=== PATIENT | female | born 1935 | race Two or more races ===

== ENCOUNTER 2020-04-20 10:00 | Emergency (ER) | payer OTHER ==
[~2020-04-20] VITALS: Ht 152.4 cm; Wt 89.8 kg
[2020-04-20] MEDS ORDERED: HUMULIN N100 UNIT/2 IM (10:10)
[2020-04-20] MEDS ORDERED: DIOVAN320 MG PO (10:11)
[2020-04-20] MEDS ORDERED: CARDURA XL4 MG PO (10:11)
[2020-04-20] MEDS ORDERED: NEURONTIN600 M1 PO (10:11)
[2020-04-20] MEDS ORDERED: CHILDREN'S ASPI81 MG PO (10:11)
[2020-04-20] MEDS ORDERED: TOPROL XL25 M1 PO (10:11)
[2020-04-20] MEDS ORDERED: TYLENOL ARTHRI650 MG PO (10:12)
== END 2020-04-20 15:32 | disposition home or self-care (01) ==
LOC: ER 10:00
DX: I83.893 Varicose veins of bilateral lower extremities with other complications (principal); M79.605 Pain in left leg

== ENCOUNTER 2021-10-01 09:46 | Inpatient (IN) | payer OTHER ==
[~2021-10-01] VITALS: Ht 152.4 cm; Wt 91.6 kg
[~2021-10-01 09:46] MED LIST: CARDURA XL4 MG PO; CHILDREN'S ASPI81 MG PO; DIOVAN320 MG PO; HUMULIN N100 UNIT/2 IM; NEURONTIN600 M1 PO; TOPROL XL25 M1 PO; TYLENOL ARTHRI650 MG PO
[2021-10-01] MEDS ORDERED: LOSARTAN POTAS100 MG PO (10:05)
[2021-10-03] MEDS ORDERED: SALONPAS 3.1%-1 EACH (10:18)
[2021-10-03] MEDS ORDERED: DONEPEZIL HCL5 MG (10:18)
[2021-10-03] MEDS ORDERED: LUBRICANT EYE15 M1 (10:18)
[2021-10-03] MEDS ORDERED: DULOXETINE HCL20 MG (10:19)
[2021-10-03] MEDS ORDERED: METFORMIN HCL500 M4 (10:19)
[2021-10-03] MEDS ORDERED: LOPRESSOR25 MG (10:19)
[2021-10-03] MEDS ORDERED: VALSARTAN-HCTZ1 EAC3 (10:19)
[2021-10-03] MEDS ORDERED: ATORVASTATIN CA20 MG (10:19)
== END 2021-10-04 19:30 | disposition home or self-care (01) | DRG 343 ==
LOC: ER 09:46 → MEDI 20:34
PROVIDERS: Surgery; ADMIT Internal Medicine; ATTEND Internal Medicine
PROC: BW2110Z Computerized Tomography (CT Scan) of Abdomen and Pelvis using Low Osmolar Contrast, Unenhanced and Enhanced (ICD-10-PCS; 2021-10-02)
PROC: 0DTJ0ZZ Resection of Appendix, Open Approach (ICD-10-PCS; principal; 2021-10-02 12:30)
DX: K35.891 Other acute appendicitis without perforation, with gangrene (principal); K57.30 Diverticulosis of large intestine without perforation or abscess without bleeding; E11.21 Type 2 diabetes mellitus with diabetic nephropathy; Z79.4 Long term (current) use of insulin; Z78.1 Physical restraint status; Z20.822 Contact with and (suspected) exposure to COVID-19